=== PATIENT | female | born 1970 | race Two or more races ===

== ENCOUNTER → 2018-06-16 | Emergency (ER) | payer OTHER ==
[~2018-06-16] VITALS: Ht 165.1 cm; Wt 77.1 kg
[~2018-06-16] MED LIST: ABILIFY10 MG PO; ABILIFY2 MG PO; BACTRIM DS TAB1 EACH PO; CLONAZEPAM0.5 M1 PO; ESKALITH300 MG PO; TRAZODONE HCL50 MG PO; URIN D.S. TABL1 EACH PO; ZOLOFT25 MG
== END | disposition home or self-care (01) ==
LOC: ER 18:01
DX: N39.0 Urinary tract infection, site not specified (principal)

== ENCOUNTER 2019-05-20 21:03 | Emergency (ER) | payer OTHER ==
[~2019-05-20] VITALS: Ht 165.1 cm; Wt 79.4 kg
[2019-05-22] MEDS ORDERED: KEFLEX500 MG (20:36)
[2019-05-22] MEDS ORDERED: TUSNEL DM LIQU473 ML PO (21:17)
== END 2019-05-21 01:14 | disposition home or self-care (01) ==
LOC: ER 21:03
DX: J31.2 Chronic pharyngitis (principal); J32.8 Other chronic sinusitis

== ENCOUNTER 2019-05-22 18:46 | Emergency (ER) | payer OTHER ==
[~2019-05-22] VITALS: Ht 165.1 cm; Wt 79.4 kg
[2019-05-22] MEDS ORDERED: KEFLEX500 MG (20:36)
[2019-05-22] MEDS ORDERED: TUSNEL DM LIQU473 ML PO (21:17)
== END 2019-05-22 21:24 | disposition home or self-care (01) ==
LOC: ER 18:46
DX: J03.90 Acute tonsillitis, unspecified (principal)

== ENCOUNTER 2019-12-18 20:30 | Emergency (ER) | payer OTHER ==
[~2019-12-18] VITALS: Ht 167.6 cm; Wt 81.6 kg
[~2019-12-18 20:30] MED LIST changes: +KEFLEX500 MG; +TUSNEL DM LIQU473 ML PO
[2019-12-18] MEDS ORDERED: LASIX20 MG PO (22:48)
== END 2019-12-19 00:39 | disposition home or self-care (01) ==
LOC: ER 20:30
DX: R60.0 Localized edema (principal)

== ENCOUNTER 2021-01-10 20:56 | Emergency (ER) | payer OTHER ==
[~2021-01-10] VITALS: Ht 165.1 cm; Wt 63.5 kg
[~2021-01-10 20:56] MED LIST changes: +LASIX20 MG PO
[2021-01-11] MEDS ORDERED: PYRIDIUM200 MG PO (00:06)
== END 2021-01-11 00:45 | disposition home or self-care (01) ==
LOC: ER 20:56
DX: N39.0 Urinary tract infection, site not specified (principal); B37.3 Candidiasis of vulva and vagina

== ENCOUNTER 2023-04-20 23:43 | Emergency (ER) | payer OTHER ==
[~2023-04-20] VITALS: Ht 162.6 cm; Wt 77.1 kg
[~2023-04-20 23:43] MED LIST changes: +PYRIDIUM200 MG PO
[2023-04-21 04:40] LABS: HEMATOCRIT 38.1 % (36.0-45.00); HEMOGLOBIN 13.2 g/dL (12.0-15.00); MEAN CELL VOLUME 87.4 fL (80.00-100.00); MEAN CORPUSCULAR HEMOGLOBIN 30.2 pg (27.00-32.0); MEAN CORPUSCULAR HGB CONC 34.6 g/dl (32.0-36.0); PLATELET COUNT 227 K/uL (150-450); RED BLOOD COUNT 4.36 M/uL (4.00-6.00); RED CELL DISTRIBUTION WIDTH 12.9 % (11.5-14.5)
[2023-04-21 04:50] LABS: CALCIUM 8.8 mg/dL (8.5-10.1); CREATININE SERUM 0.73 mg/dL (0.55-1.02); GFR 84.05; POTASSIUM 4.04 mEq/L (3.5-5.1)
[2023-04-21 04:50] LABS: PH,URINE 5.5 (5.0-8.0); URINE APPEARANCE Clear; URINE BILIRRUBIN Negative (NEGATIVE); URINE BLOOD Negative; URINE COLOR Yellow; URINE GLUCOSE Negative (NEGATIVE); URINE LEUKOCYTE Small; URINE NITRATE Negative; URINE PROTEIN Negative (NEGATIVE); URINE UROBILINOGEN 0.2 E.U./dl
[2023-04-21 04:54] LABS: URINE BACTERIA 1795.3 uL (0.0-1933); URINE EPITHELIAL CELLS 16.5 uL (0.0-38.8); URINE RBC 5.3 uL (0.0-20.8); URINE WBC 30.5 uL (0.0-23.2)
[2023-04-21] MEDS ORDERED: CIPRO500 MG PO (06:43)
== END 2023-04-21 07:55 ==
LOC: ER 23:44
PROVIDERS: General Practice
DX: N30.90 Cystitis, unspecified without hematuria (principal)

== ENCOUNTER 2024-12-01 19:27 | Emergency (ER) | payer OTHER ==
[~2024-12-01] VITALS: Ht 165.1 cm; Wt 86.2 kg
[~2024-12-01 19:27] MED LIST changes: +CIPRO500 MG PO
[2024-12-01] MEDS ORDERED: LEXAPRO5 MG PO (20:19)
[2024-12-01] MEDS ORDERED: HYDROXYZIN10 MG/5 ML PO (20:19)
[2024-12-01] MEDS ORDERED: DICLOFENAC POTA50 MG PO (20:20)
[2024-12-01] MEDS ORDERED: ARIPIPRAZOLE2 MG PO (20:20)
[2024-12-02] MEDS ORDERED: KETOROLAC TROMETHAMINE 60 MG VIAL IM ONE ×2 (00:06→00:15)
[2024-12-02] MEDS ORDERED: DEXAMETHASONE SODIUM PHOSPHATE 4 MG/ML VIAL ONE (00:07)
[2024-12-02] MEDS ORDERED: DEXAMETHASONE SODIUM PHOSPHATE 4 MG/ML VIAL IM ONE (00:15)
== END 2024-12-02 00:22 | disposition home or self-care (01) ==
LOC: ER 21:37
DX: M25.561 Pain in right knee (principal)